=== PATIENT | male | born 1980 | race African-American/Black ===

== ENCOUNTER 2017-02-08 01:37 | Emergency (ER) | payer SELFPAY ==
[~2017-02-08] VITALS: Ht 175.3 cm; Wt 66.0 kg
[2017-02-08] MEDS ORDERED: MORPHINE SULFATE 4 MG/ML CPJ (NOT FOR IM USE) IV STA (04:49)
[2017-02-08] MEDS ORDERED: FAMOTIDINE 20MG/2ML VIAL IV STA (04:49)
[2017-02-08] MEDS ORDERED: SODIUM CHLORIDE 0.9% 1,000 ML IV ONE (04:49)
[2017-02-08] MEDS ORDERED: ONDANSETRON HCL 4MG/2ML VIAL IV STA (04:49)
[2017-02-08 05:07] LABS: EOSINOPHILS % 0.4 % (0.0-5.0); HEMATOCRIT. 41.4 % (42.0-52.0); HEMOGLOBIN. 14.4 g/dL (14.0-18.0); LYMPHOCYTES % 18.4 % (20.0-50.0); MEAN CORPUSCULAR HEMOGLOBIN 31.2 pg (28.0-32.0); MEAN CORPUSCULAR VOLUME 89.3 fL (80.0-94.0); MEAN PLATELET VOLUME 9.6 fl (7.4-10.4); MONOCYTES % 10.4 % (2.0-8.0); NEUTROPHILS % 69.8 % (40.0-76.0); PLATELET 131 x1000/uL (130-400); RED BLOOD CELL COUNT 4.64 mill/uL (4.7-6.1); RED CELL DISTRIBUTION WIDTH 12.8 % (11.6-14.6)
[2017-02-08 05:13] LABS: CHLORIDE 102 mEq/L (98-107)
[2017-02-08 05:22] LABS: CARBON DIOXIDE 28 mEq/L (21-32)
[2017-02-08 07:25] VITALS: BP 119/68
[2017-02-08] MEDS ORDERED: IOHEXOL-300 100 ML BOTTLE ONE (09:50)
[2017-02-08] MEDS ORDERED: SODIUM CHLORIDE 0.9% 10ML VIAL ONE (09:50)
== END 2017-02-08 07:26 | disposition home or self-care (01) ==
LOC: ER 07:13
DX: K52.9 Noninfective gastroenteritis and colitis, unspecified (principal); K21.9 Gastro-esophageal reflux disease without esophagitis; F12.10 Cannabis abuse, uncomplicated
CPT/HCPCS: 36415; 71010; 74177; 80053; 83690; 85025; 93005; 96361; 96374; 96375; 99285; A4216; J2270; J2405; J3490; J7030; Q9967; Z7610